=== PATIENT | male | born 1975 | race Caucasian/White ===

== ENCOUNTER 2023-05-06 11:24 | Inpatient (IN) ==
[2023-05-06 12:41] LABS: Hematocrit 52.5 % (38-53); Hemoglobin 18.5 g/dL (13.2-16.3); Mean Corpuscular Hemoglobin 30.8 pg (27-33); Mean Corpuscular Hgb Conc 35.3 g/dL (31-36); Mean Corpuscular Volume 87.1 fL (80-97); Mean Platelet Volume 8.2 fL (7.5-11.2); Platelet Count 193 10^3/uL (150-450); Red Blood Count 6.02 10^6/uL (4.06-5.63); Red Cell Distribution Width 13.1 % (12-17); White Blood Count 16.4 10^3/uL (3.6-10.2)
[2023-05-06 13:02] LABS: ABS Lymphocytes 1.7 10^3/uL (1.0-4.8); ABS Monocytes 1.8 10^3/uL (0.0-1.1); ABS Neutrophils 12.8 10^3/uL (1.5-7.6); Eosinophil % 0.1 %; Lymphocyte % 10.6 %
[2023-05-06 13:08] LABS: Blood Urea Nitrogen 119 mg/dL (6-24); CO2 Carbon Dioxide 21 mmol/L (22-32); Calcium 8.6 mg/dL (8.6-10.3); Chloride 83 mmol/L (101-111); Creatinine, Serum 5.16 mg/dL (0.67-1.17); Glucose 68 mg/dL (70-100)
[2023-05-06 13:18] LABS: Sodium 118 mmol/L (135-145)
[2023-05-06] MEDS: NS 0.9% 1000 ml BAG 1,000 ML IV ONE (13:39)
[2023-05-06 13:44] LABS: Urine Osmo 522 mOsm/kg (150-1150)
[2023-05-06 14:06] LABS: Anion Gap 14 mmol/L (2-16)
[2023-05-06] MEDS: NS 0.9% 1000 ml BAG 1,000 ML IV SCH ×2 (14:46→16:47)
[2023-05-06 16:25] LABS: Anion Gap 13 mmol/L (2-16); Blood Urea Nitrogen 120 mg/dL (6-24); CO2 Carbon Dioxide 15 mmol/L (22-32); Calcium 7.8 mg/dL (8.6-10.3); Chloride 90 mmol/L (101-111); Creatinine, Serum 4.76 mg/dL (0.67-1.17); Glucose 89 mg/dL (70-100); Sodium 118 mmol/L (135-145); eGFR CKD-EPI 14.3 (>60)
[2023-05-06] MEDS ORDERED: Ondansetron 4 mg VIAL 2 MG/ML 2 ml VIAL IV PRN (16:37)
[2023-05-06 18:32] LABS: Potassium, Whole Blood 4.2 mmol/L (3.4-4.5)
[2023-05-06 18:37] LABS: Hematocrit 46.8 % (38-53); Hemoglobin 16.7 g/dL (13.2-16.3); Mean Corpuscular Hemoglobin 30.4 pg (27-33); Mean Corpuscular Hgb Conc 35.6 g/dL (31-36); Mean Corpuscular Volume 85.4 fL (80-97); Mean Platelet Volume 8.7 fL (7.5-11.2); Platelet Count 192 10^3/uL (150-450); Red Blood Count 5.48 10^6/uL (4.06-5.63); White Blood Count 15.1 10^3/uL (3.6-10.2)
[2023-05-06 18:57] LABS: Activated Partial Thrombo Time 27.6 seconds (26.0-38.0); INR 1.16 (0.83-1.13)
[2023-05-06 18:58] LABS: ABS Eosinophils 0.1 10^3/uL (0.0-0.5); ABS Lymphocytes 1.8 10^3/uL (1.0-4.8); ABS Monocytes 1.7 10^3/uL (0.0-1.1); ABS Neutrophils 11.5 10^3/uL (1.5-7.6); ABS Nucleated RBC 0.02 10^3/ul; Eosinophil % 0.4 %; Lymphocyte % 11.7 %; Nucleated Red Blood Cells % 0.1 %/100WBC (0.0-0.8)
[2023-05-06 20:04] LABS: Calcium 8.3 mg/dL (8.6-10.3); Creatinine, Serum 4.69 mg/dL (0.67-1.17); HDL Cholesterol 30.7 mg/dL; Potassium 3.8 mmol/L (3.5-5.0); eGFR CKD-EPI 14.5 (>60)
[2023-05-06] MEDS: Heparin 5000 UNITS/ML 1 mL VIAL SUBCUT SCH (22:25)
[2023-05-06] MEDS: NS 0.45% 1000 ml BAG 1,000 ML IV SCH (23:00)
[2023-05-07 00:16] LABS: Calcium 7.8 mg/dL (8.6-10.3); Creatinine, Serum 4.2 mg/dL (0.67-1.17); Potassium 3.8 mmol/L (3.5-5.0); eGFR CKD-EPI 16.6 (>60)
[2023-05-07] MEDS: Desmopressin Acetate 4 MCG/ML 1 ML SDV ONE (02:14)
[2023-05-07] MEDS: D5W 500 ml BAG 500 ML IV SCH (02:18)
[2023-05-07 05:24] LABS: Hematocrit 41.5 % (38-53); Hemoglobin 14.8 g/dL (13.2-16.3); Mean Corpuscular Hemoglobin 30.7 pg (27-33); Mean Corpuscular Hgb Conc 35.8 g/dL (31-36); Mean Corpuscular Volume 85.9 fL (80-97); Red Blood Count 4.83 10^6/uL (4.06-5.63); Red Cell Distribution Width 13.1 % (12-17); White Blood Count 8.7 10^3/uL (3.6-10.2)
[2023-05-07 05:56] LABS: Anion Gap 13 mmol/L (2-16); Blood Urea Nitrogen 99 mg/dL (6-24); CO2 Carbon Dioxide 17 mmol/L (22-32); Calcium 7.7 mg/dL (8.6-10.3); Chloride 92 mmol/L (101-111); Creatinine, Serum 3.67 mg/dL (0.67-1.17); Glucose 155 mg/dL (70-100); Magnesium 1.9 mg/dL (1.9-2.7); Sodium 122 mmol/L (135-145); eGFR CKD-EPI 19.5 (>60)
[2023-05-07] MEDS: Lactated Ringers 1000 ml BAG 1,000 ML IV SCH (09:28)
[2023-05-07 09:44] LABS: Potassium, Whole Blood 3.8 mmol/L (3.4-4.5)
[2023-05-07 13:17] LABS: Calcium 8.2 mg/dL (8.6-10.3); Creatinine, Serum 2.93 mg/dL (0.67-1.17); Potassium 3.6 mmol/L (3.5-5.0); eGFR CKD-EPI 25.6 (>60)
[2023-05-08 05:00] LABS: Hematocrit 38.1 % (38-53); Hemoglobin 13.7 g/dL (13.2-16.3); Mean Corpuscular Hemoglobin 30.9 pg (27-33); Mean Corpuscular Hgb Conc 35.9 g/dL (31-36); Mean Platelet Volume 8.3 fL (7.5-11.2); Platelet Count 170 10^3/uL (150-450); Red Blood Count 4.42 10^6/uL (4.06-5.63); Red Cell Distribution Width 13.2 % (12-17); White Blood Count 9.5 10^3/uL (3.6-10.2)
[2023-05-08 05:29] LABS: Calcium 8.8 mg/dL (8.6-10.3); Creatinine, Serum 2.39 mg/dL (0.67-1.17); Magnesium 1.8 mg/dL (1.9-2.7); Potassium 4.1 mmol/L (3.5-5.0); eGFR CKD-EPI 32.6 (>60)
[2023-05-08] MEDS: Magnesium Sulfate IV 1GM/100ML 1 GM/100 ML BAG IV ONE (06:07)
[2023-05-08] MEDS: Magnesium Sulfate 2 gm BAG 2 GM/50 ML BAG IVPB ONE (08:15)
[2023-05-08 08:21] VITALS: BP 149/92
== END 2023-05-08 10:25 | disposition home or self-care (01) | DRG 683 ==
LOC: ED 11:24 → EDHOLD 13:19 → ICU 15:28
PROVIDERS: ADMIT Internal Medicine Critical Care Medicine; ATTEND Internal Medicine Critical Care Medicine